=== PATIENT | male | born 1955 | race Caucasian/White ===

== ENCOUNTER 2022-04-16 06:21 | Observation (INO) ==
[2022-04-16] MEDS ORDERED: CeFAZolin Syr 3,000MG/30 ML 3,000 MG/30 ML SYRINGE IVPB ONE (06:50)
[2022-04-16] MEDS ORDERED: Ringers Solution, Lactated 1,000 ML IVC SCH ×2 (07:00→14:05)
[2022-04-16] MEDS ORDERED: tiZANidine 4 MG TABLET PO SCH (07:00)
[2022-04-16] MEDS ORDERED: Pregabalin 75 MG CAPSULE PO ONE (07:00)
[2022-04-16] MEDS ORDERED: *HR* OxyCODONE Immed Rel 5 MG TABLET PO ONE (07:00)
[2022-04-16] MEDS ORDERED: Vancomycin 1,000 MG VIAL ONE (07:05)
[2022-04-16] MEDS ORDERED: Ondansetron 4 MG/2 ML VIAL ONE (07:11)
[2022-04-16] MEDS ORDERED: *HR* Propofol 200 MG/20 ML VIAL IVP ONE ×2 (07:11→07:18)
[2022-04-16] MEDS ORDERED: *HR* Remifentanil 2 MG VIAL IVP ONE (07:11)
[2022-04-16] MEDS ORDERED: *HR* Rocuronium Bromide 50 MG/5 ML VIAL ONE (07:11)
[2022-04-16] MEDS ORDERED: *HR* FentaNYL (PF) 100 MCG/2 ML VIAL ONE (07:11)
[2022-04-16] MEDS ORDERED: *HR* Succinylcholine 200 MG/10 ML VIAL IVP ONE (07:11)
[2022-04-16] MEDS ORDERED: *HR* Remifentanil 1 MG VIAL IVP ONE ×2 (07:23→10:58)
[2022-04-16] MEDS ORDERED: *HR* Vasopressin 20 UNIT/ML VIAL ONE (07:37)
[2022-04-16] MEDS ORDERED: EPHEDrine 50 MG/ML VIAL ONE (08:12)
[2022-04-16] MEDS ORDERED: *HR* Phenylephrine 10 MG/ML VIAL ONE (09:02)
[2022-04-16] MEDS ORDERED: Sugammadex Sodium 200 MG/2 ML VIAL IV ONE (09:10)
[2022-04-16] MEDS ORDERED: *HR* HYDROMORPHONE 2 MG/ML VIAL ONE (09:25)
[2022-04-16] MEDS ORDERED: Ondansetron 4 MG/2 ML VIAL IVP PRN ×2 (11:58→14:05)
[2022-04-16] MEDS ORDERED: *HR* HYDROmorphone PF 0.5 MG/0.5 ML SYRINGE IVP PRN (11:58)
[2022-04-16] MEDS ORDERED: *HR* HYDROcodone/Acet 5/325 mg TABLET PO PRN (14:05)
[2022-04-16] MEDS ORDERED: Naloxone 0.4 MG/ML INJ IVP PRN (14:05)
[2022-04-16] MEDS: CeFAZolin 2 GM/120 ML BAG IVPB SCH ×2 (17:44→23:39)
[2022-04-16] MEDS: tiZANidine 4 MG TABLET PO SCH (21:06)
[2022-04-16] MEDS: *HR* OxyCODONE Immed Rel 5 MG TABLET PO PRN (23:39)
[2022-04-17] MEDS: *HR* OxyCODONE Immed Rel 5 MG TABLET PO PRN ×3 (03:35→20:25)
[2022-04-17] MEDS: tiZANidine 4 MG TABLET PO SCH ×2 (08:22→20:25)
[2022-04-17] MEDS: Magnesium Oxide 400 MG TABLET PO SCH (08:22)
[2022-04-17] MEDS: Pyridoxine (B-6) 50 MG TABLET PO SCH (08:22)
[2022-04-17] MEDS: amLODIPine 5 MG TABLET PO SCH (08:22)
[2022-04-17] MEDS: lisinopriL 20 MG TABLET PO SCH (08:23)
[2022-04-17] MEDS: Cholecalciferol (D-3) 1,000 UNIT (25MCG) TABLET PO SCH (08:23)
[2022-04-17] MEDS ORDERED: MILK THISTLE 150 MG PO SCH (09:00)
[2022-04-17] MEDS ORDERED: NON-FORMULARY MEDICATION 1 EACH EACH (Potassium 99 MG Tablet) PO SCH (09:00)
[2022-04-17] MEDS ORDERED: [UNRECOGNIZED DRUG - OTHER] PO SCH (09:00)
[2022-04-17] MEDS: diazePAM 10 MG TABLET PO PRN (09:37)
[2022-04-17] MEDS: Acetaminophen 325 MG TABLET PO PRN (15:53)
[2022-04-18] MEDS: *HR* OxyCODONE Immed Rel 5 MG TABLET PO PRN ×4 (03:24→21:31)
[2022-04-18] MEDS: Magnesium Oxide 400 MG TABLET PO SCH (09:18)
[2022-04-18] MEDS: lisinopriL 20 MG TABLET PO SCH (09:18)
[2022-04-18] MEDS: amLODIPine 5 MG TABLET PO SCH (09:18)
[2022-04-18] MEDS: tiZANidine 4 MG TABLET PO SCH ×2 (09:18→21:31)
[2022-04-18] MEDS: Pyridoxine (B-6) 50 MG TABLET PO SCH (09:18)
[2022-04-18] MEDS: Cholecalciferol (D-3) 1,000 UNIT (25MCG) TABLET PO SCH (09:19)
[2022-04-18] MEDS: Acetaminophen 325 MG TABLET PO PRN (16:48)
[2022-04-19 02:59] VITALS: TEMP 98.5
[2022-04-19] MEDS: *HR* OxyCODONE Immed Rel 5 MG TABLET PO PRN ×2 (03:03→11:58)
[2022-04-19] MEDS: diazePAM 10 MG TABLET PO PRN (03:03)
[2022-04-19 06:56] VITALS: BP 121/70; PULSE 68; O2SAT 92
[2022-04-19] MEDS: Magnesium Oxide 400 MG TABLET PO SCH (11:59)
[2022-04-19] MEDS: lisinopriL 20 MG TABLET PO SCH (11:59)
[2022-04-19] MEDS: tiZANidine 4 MG TABLET PO SCH (11:59)
[2022-04-19] MEDS: amLODIPine 5 MG TABLET PO SCH (11:59)
[2022-04-19] MEDS: Pyridoxine (B-6) 50 MG TABLET PO SCH (11:59)
[2022-04-19] MEDS: Cholecalciferol (D-3) 1,000 UNIT (25MCG) TABLET PO SCH (11:59)
== END 2022-04-19 16:45 | disposition home or self-care (01) ==
LOC: SDCAOSI 06:21 → 4WAOSI 06:21
PROVIDERS: ADMIT Orthopaedic Surgery Orthopaedic Surgery of the Spine; ATTEND Orthopaedic Surgery Orthopaedic Surgery of the Spine